=== PATIENT | male | born 1970 | race Two or more races ===

== ENCOUNTER 2017-12-22 14:57 | Emergency (ER) | payer OTHER ==
[~2017-12-22] VITALS: Ht 167.6 cm; Wt 88.9 kg
--- NOTE | 2017-12-22 15:09 | ER.PDOC ---
General Chief Complaint: Requesting Medical Care Stated Complaint: DIZZINESS Time seen by MD: 15:08 Source: patient Exam Limitations: no limitations History of Present Illness Initial Comments Pt has felt dizzy the last two days, no history of HTN, was found to have elevated BP and sent here, no other symptoms otherwise Occurred: yesterday Severity: mild Associated Symptoms: vague, weakness, light headness Usually: walks w/o assistance Worsened By: nothing Allergies: Coded Allergies: No Known Allergies (Unverified , 12/22/17) Past Medical History Medical History: thyroid disease Review of Systems Constitutional: no symptoms reported Eyes: no symptoms reported Ears: no symptoms reported Nose: no symptoms reported Mouth: no symptoms reported Throat: no symptoms reported Respiratory: no symptoms reported Cardiovascular: no symptoms reported Gastrointestinal: no symptoms reported Genitourinary: no symptoms reported Musculoskeletal: no symptoms reported Skin: no symptoms reported Psychiatric/Neurological: see HPI, other (dizziness) Physical Exam General Appearance: alert, no distress EENT: nml eye inspection, PERRL, no nystagmus, nml ENT inspection, pharynx nml , TM's nml Neck: supple Respiratory: no resp distress, breath sounds nml CVS: reg rate & rhythm, heart sounds.nml Abdomen: non-tender, no organomegaly, no distention Skin: color nml, no rash, warm/dry Extremities: non-tender, nml ROM, no pedal edema Neuro/Psych: nml orientation, nml speech/cognition, nml mood/affect Cranial Nerves: nml as tested, no evidence of acute CVA Cerebellar: nml as tested Sensorimotor: nml motor, nml sensation Results/Orders Results/Orders Laboratory Tests Test 12/22/17 15:30 White Blood Count 7.4 10^3/uL (4.5-11.0) Red Blood Count 4.68 10^6/uL (4.50-5.90) Hemoglobin 13.5 g/dL (13.9-16.3) Hematocrit 40.8 % (37.0-53.0) Mean Corpuscular Volume 87.2 fL (78-100) Mean Corpuscular Hemoglobin 28.8 pg (26-34) Mean Corpuscular Hemoglobin Concent 33.1 g/dL (33-37) Red Cell Distribution Width 13.4 % (11.5-14.5) Platelet Count 231 10^3/uL (150-400) Mean Platelet Volume 10.9 fL (7.8-11.0) Neutrophils (%) (Auto) 69.0 % (41.0-85.0) Lymphocytes (%) (Auto) 21.2 % (24.0-44.0) Monocytes (%) (Auto) 8.1 % (5.0-12.0) Neutrophils # (Auto) 5.1 10^3/uL (1.8-7.7) Lymphocytes # (Auto) 1.6 10^3/uL (1.0-4.8) Monocytes # (Auto) 0.6 10^3/uL (0.3-0.8) Absolute Immature Granulocyte (auto 0.01 10^3 u/L (0-2) Eosinophils % 1.2 % (0.0-5.0) Basophils % 0.4 % (0.0-0.2) Basophils # 0.0 10^3/uL (0.0-0.1) Eosinophil Count 0.1 10^3/uL (0.0-0.2) Prothrombin Time 10.5 SEC (9.8-11.9) Prothrombin Time INR (Non-Therap) 1.1 Activated Partial Thromboplast Time 25.3 SEC (24.67-30.72) Sodium Level 142 mmol/L (132-145) Potassium Level 3.0 mmol/L (3.6-5.2) Chloride Level 105.0 mmol/L (96-109) Carbon Dioxide Level 29.1 mmol/L (20.0-32) Anion Gap 10.9 Blood Urea Nitrogen 15 mg/dL (7-18) Creatinine 0.87 mg/dL (0.59-1.40) Estimated GFR () 114.8 (>/=60) BUN/Creatinine Ratio 17.0 Glucose Level 108 mg/dL (70-110) Calcium Level 9.8 mg/dL (8.4-10.5) Total Bilirubin 0.4 mg/dL (0.2-1.0) Aspartate Amino Transf (AST/SGOT) 13 U/L (0-35) Alanine Aminotransferase (ALT/SGPT) 33 U/L (12-78) Alkaline Phosphatase 81 U/L (50-136) Total Creatine Kinase 61 U/L (39-308) Creatine Kinase MB 0.6 ng/mL (0.5-3.6) Troponin I < 0.02 ng/mL (0.00-0.05) Pro-B-Type Natriuretic Peptide 15 pg/mL (0-125) Total Protein 7.5 g/dL (6.4-8.2) Albumin 4.2 g/dL (3.4-5.0) Globulin 3.3 Percent Immature Gran (Cell Imm) 0.10 % (0.00-0.50) Administered Medications Medications (Trade) Dose Ordered Sig/Be Route PRN Reason Start Time Stop Time Status Last Admin Dose Admin Lorazepam (Ativan) 1 mg STAT STAT PO 12/22/17 15:22 12/22/17 15:24 DC 12/22/17 15:37 Departure Time of Disposition: 16:22 Disposition: 01 HOME, SELF-CARE Impression: Primary Impression: Essential (primary) hypertension Additional Impressions: Elevated blood pressure reading Hypokalemia Condition: Stable Patient Instructions: Hypertension, Hypokalemia-Brief Referrals: PCP,UNKNOWN (PCP) PRIMARY CARE PROVIDER Duration or Time Spent with Pa: 15 Problem Qualifiers BARBER VARGHESE MD Dec 22, 2017 15:09
[2017-12-22 15:19] VITALS: BP 165/114
[2017-12-22] MEDS ORDERED: ATIVAN PO STA (15:22)
[2017-12-22 15:35] LABS: BASOPHIL % 0.4 % (0.0-0.2); EOSINOPHIL # 0.1 10^3/uL (0.0-0.2); EOSINOPHIL % 1.2 % (0.0-5.0); HEMOGLOBIN 13.5 g/dL (13.9-16.3); LYMPHOCYTES # 1.6 10^3/uL (1.0-4.8); LYMPHOCYTES % 21.2 % (24.0-44.0); MEAN CELL HGB 28.8 pg (26-34); MEAN CELL HGB CONCENTRATION 33.1 g/dL (33-37); MEAN CORP VOLUME 87.2 fL (78-100); MEAN PLATELET VOLUME 10.9 fL (7.8-11.0); MONOCYTES # 0.6 10^3/uL (0.3-0.8); MONOCYTES % 8.1 % (5.0-12.0); NEUTROPHIL # 5.1 10^3/uL (1.8-7.7); RED CELL DISTRIBUTION WIDTH 13.4 % (11.5-14.5); WHITE BLOOD CELL 7.4 10^3/uL (4.5-11.0)
[2017-12-22] MEDS ORDERED: ATIVAN ONE (15:37)
--- NOTE | 2017-12-22 15:46 | DIREP ---
PROCEDURE:CHEST 1 VIEW COMPARISON:None. INDICATIONS:palpitations FINDINGS: Portable frontal view of the chest is provided. The patient is rotated slightly to the left. LUNGS/PLEURA:No significant pulmonary parenchymal abnormalities. No effusion or pneumothorax. VASCULATURE:Normal. Unremarkable pulmonary vasculature. CARDIAC:Normal. No cardiac silhouette abnormality or cardiomegaly. MEDIASTINUM:Normal. No visible mass or adenopathy. BONES:Normal. No fracture or visible bony lesion. OTHER:Negative. CONCLUSION: No acute cardiopulmonary abnormality. Dictated by: Duc Pelletier MD on 12/22/2017 at 03:44 PM
[2017-12-22 16:16] LABS: ALANINE AMINOTRANSFERASE(ML) 33 U/L (12-78); ALKALINE PHOSPHATASE 81 U/L (50-136); ASPARTATE AMINO TRANSFERASE 13 U/L (0-35); CALCIUM 9.8 mg/dL (8.4-10.5); CARBON DIOXIDE 29.1 mmol/L (20.0-32); GLUCOSE 108 mg/dL (70-110)
[2017-12-22] MEDS ORDERED: KLOR-CON 10 PO SCH (16:30)
[2017-12-22] MEDS ORDERED: KLOR-CON 10 PO ONE (16:46)
[2017-12-22 16:55] VITALS: BP 165/114
--- NOTE | 2017-12-22 19:18 | PCM.EKG ---
[facility] Test Date: 2017-12-22 Test Time: 15:36:49 Pat Name: MICHAELA TRACEY Department: Room: Gender: M Inventory Clerk: : 1970 Requested By: BARBER DELACRUZ Order Number: [id number] Reading MD: Barber Delacruz Measurements Intervals [place] Rate: 73 P: 56 [place]: 186 QRS: -25 QRSD: 122 T: 63 QT: 424 QTc: 467 Interpretive Statements MICHAELA DAVID LEEEBIO No previous ECG available for comparison There is a RBBB Electronically Signed On 12-22-2017 22:37:25 CDT by Barber Delacruz Please click the below link to view image of tracing.
== END 2017-12-22 16:55 | disposition home or self-care (01) ==
LOC: ER 14:57
DX: I10 Essential (primary) hypertension (principal); E87.6 Hypokalemia; E07.9 Disorder of thyroid, unspecified
CPT/HCPCS: 36415; 71045; 80053; 82550; 82553; 83880; 84484; 85025; 85610; 85730; 93005; 99285; J3480